=== PATIENT | female | born 1960 | race Caucasian/White ===

== ENCOUNTER 2016-07-25 11:52 | Inpatient (IN) | payer OTHER ==
--- NOTE | ~2016-07-25 | CN ---
Consultation Report [facility] [address] [place]. [address] NAME: FERNANDA KITCHEN : 60 STATUS : ADM IN PAT#: [id number] AGE: 56 ADM/REG DATE : 07/25/16 MR#: [id number] REPORT SERV DATE: 07/27/16 DICTATED BY: ANDIE NGUYEN DATE: 07/26/16 REPORT STATUS : Draft TRANSCRIBED BY: MODL DATE: 07/26/16 CONSULTATION DATE OF CONSULTATION: 07/26/2016 Fernanda Kitchen is a 56-year-old female, whom we are asked to see for evaluation of a Crohn's flare. This patient has been seen by my partner, Dr. Coats in the past. She has a history of Crohn disease that was diagnosed in 1985, the Crohn's was just involved to the small bowel. She had a small bowel resection in 1996. Dr. oCats saw her and did a colonoscopy in February 2005 showing stenosis at the ileocecal valve. The patient was last seen by our group in June of 2014 when she was hospitalized prior to mitral valve replacement surgery. At that time, she had a CT scan showing some esophagitis. An EGD done on 07/14/2014 showed gastritis. The patient has not followed up with button sawyer since that time, because of insurance problems. She does currently have [place] Medicaid. The patient tells me she intermittently has cramping and bloating. She does have chronic diarrhea with about five bowel movements per day. The patient says that her pain increased yesterday that brought her to the emergency room. CT scan showed thickening of the last 10 cm of the terminal ilium prior to its anastomosis of the colon. The lumen was narrowed and it was read as a partial small bowel obstruction. A Gastrografin small bowel followthrough was done today showing thickening of the TI, but no obstruction. The Gastrografin got colon in 45 minutes. The patient continues to have abdominal pain. She denies any hematochezia or melena. She does tell me she had a CVA at [facility] four months ago and is currently on Eliquis because of that. PAST MEDICAL HISTORY: 1. Crohn disease. 2. CVA at [facility]. 3. Hypertension. 4. COPD. 5. TIA in the past. 6. Kidney stones. 7. Depression and bipolar. 8. Hyperlipidemia. PAST SURGICAL HISTORY: 1. Small bowel resection. 2. Mitral valve replacement. OUTPATIENT MEDICATIONS: See list. Of note, she is on Eliquis. ALLERGIES: DARVOCET, BENADRYL, FENTANYL. Consultation Report [place] [id number] [place]. [address] NAME: FERNANDA KITCHEN : 60 STATUS : ADM IN PAT#: [id number] AGE: 56 ADM/REG DATE : 07/25/16 MR#: [id number] REPORT SERV DATE: 07/27/16 DICTATED BY: ANDIE NGUYEN DATE: 07/26/16 REPORT STATUS : Draft TRANSCRIBED BY: JUAN LUIS DATE: 07/26/16 SOCIAL HISTORY: She stopped smoking a couple years ago. The chart says that she does drink, but she denied it. Chart also mentioned that she has used marijuana. FAMILY HISTORY: Noncontributory. REVIEW OF SYSTEMS: All system reviewed and negative except that noted in history of present illness. PHYSICAL EXAMINATION: GENERAL: She is oriented x4, in no acute distress. She is afebrile. VITAL SIGNS: Stable. LUNGS: Clear. CARDIOVASCULAR: Exam revealed normal S1, S2. ABDOMINAL: Exam revealed some mild diffuse lower abdominal tenderness. It was soft with active bowel sounds. LABORATORY DATA: Comprehensive metabolic profile today is normal except for chloride 113, albumin 2.5. Lipase on admission was normal. White blood cell count on admission was 19,200. White blood cell count today is 6000, hemoglobin on admission was 14.6 and today is 11.5, platelet count on admission was 156 and today it is 102. INR is 1.2. IMPRESSION: 1. Partial small bowel obstruction secondary to presumptive terminal ileum Crohn's. 2. Crohn disease. 3. Chronic diarrhea. This patient has not had any GI care in recent years. RECOMMENDATION: 1. Solu-Medrol when she is tolerating p.o., could change that to Entocort. She likely will need other therapy for Crohn's if we do confirm on colonoscopy that this is Crohn's. 2. It will be a good idea to do a colonoscopy, but we would question the hospitalist whether Eliquis can be held. 3. Will need outpatient GI doctor who participates in [place] Medicaid. I told her I would get the director case involved. Thanks for allowing us to assist in her care. ADRIANA/JUAN LUIS Andie Nguyen M.D. Consultation Report [facility] [address] [place] [address] NAME: FERNANDA KITCHEN : 60 STATUS : ADM IN PAT#: [id number] AGE: 56 ADM/REG DATE : 07/25/16 MR#: [id number] REPORT SERV DATE: 07/27/16 DICTATED BY: ANDIE NGUYEN DATE: 07/26/16 REPORT STATUS : Draft TRANSCRIBED BY: JUAN LUIS DATE: 07/26/16 / [id number] CC: Eliud Chang MD
--- NOTE | ~2016-07-25 | DS ---
Discharge Summary [facility] [address] [place]. [address] NAME: VAMSI EDWARDS : 60 STATUS : DIS IN PAT#: [id number] AGE: 56 ADM/REG DATE : 07/25/16 MR#: [id number] REPORT SERV DATE: 08/04/16 DICTATED BY: DATE: REPORT STATUS : Draft TRANSCRIBED BY: MODL DATE: 07/31/16 ADMISSION DATE: 07/25/2016 DISCHARGE DATE: 07/31/2016 The patient was admitted to the [facility]. ATTENDING DOCTOR: Eliud Chang MD CONSULTANTS: Major Andrea MD of Gastroenterology. DISCHARGE DIAGNOSES: 1. Partial small bowel obstruction-resolved. Due to significant inflammation of the terminal ileum and Crohn's exacerbation. 2. Longstanding history of Crohn's disease, with poor recent followup. Discharged on Pentasa and steroid taper, for consideration of outpatient initiation of alternative therapeutic agents. QuantiFERON-TB test pending at the time of discharge. 3. 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 4. History of a tissue mitral valve. 5. Hypertension. 6. Hypokalemia. 7. Hyperlipidemia. 8. Chronic obstructive pulmonary disease with past history of tobacco abuse. 9. Steroid-induced hyperglycemia. IMAGING AND DIAGNOSTICS: 1. CT abdomen and pelvis 07/25/2016, for abdominal pain, nausea, vomiting, and diarrhea shows fluid-filled distended loops of small intestine consistent with partial obstruction. Distal small intestine proximal to the anastomosis of the colon exhibits diffusely thickened wall narrowing of the lumen. Small amount of free fluid in the pelvis. Multiple prominent lymph nodes in the mesentery. Multiple small calcifications in the renal pyramids. 2. Small bowel follow through 07/26/2016. No evidence of small-bowel obstruction. Mucosal fold thickening of the terminal ileum consistent with terminal ileitis. 3. KUB, 07/27/2016, for partial small bowel obstruction shows progression of oral contrast through the GI tract with contrast remaining in portions of colon and very small amount within small bowel. No distended small bowel loops to suggest further obstruction. 4. Colonoscopy 07/29/2016, shows stricture at the ileocecal valve, which was biopsied. PERTINENT LABS: Potassium values through admission 3.1 to 4.3, creatinine through admission 0.9 to 1.3. Liver enzymes were normal. Lipase was normal. Initial lactate 2.5. Hepatitis serologies negative. Initial white count 19.2, 13.2 at discharge on steroids; hemoglobin 13.3; platelet count between 102 and 156. INR normal. QuantiFERON-TB test pending at time of discharge. Urinalysis showed cloudy urine with moderate leukocyte esterase, 14 red blood cells, 8 white blood cells, 19 squamous epithelial cells. Stool was negative for O and P, and fecal leukocytes. Negative for C. difficile toxin and urine culture showed mixed gram- Discharge Summary [facility] [address] [place]. [address] NAME: VAMSI EDWARDS : 60 STATUS : DIS IN PAT#: [id number] AGE: 56 ADM/REG DATE : 07/25/16 MR#: [id number] REPORT SERV DATE: 08/04/16 DICTATED BY: DATE: REPORT STATUS : Draft TRANSCRIBED BY: MODL DATE: 07/31/16 positive cocci and diphtheroids suggestive of contamination. BRIEF HISTORY: For full details, please see the previously dictated history of present illness by Dr. Eliud Chang. This is a 56-year-old white female with longstanding history of Crohn's disease, diagnosed in the 1980s, who has had inconsistent and poor followup over the years, due to limitations in her insurance network and finances. She has not been on anything for her Crohn's disease recently. She presented with complaints of abdominal pain, nausea, vomiting, loose stools. Initial ER workup revealed elevated white count of 19.2. Subsequent CT of the abdomen demonstrated partial small bowel obstruction with significant terminal ileitis. She was admitted to the Hospitalist Service for management. HOSPITAL COURSE: The patient was admitted to [address] [place] [address] for management of partial small bowel obstruction. This included making her n.p.o., utilizing NG suction, and starting her on antibiotics of IV Levaquin and Flagyl. GI was also consulted and followed the patient through to resolution of her partial small bowel obstruction two days following admission. The partial small bowel obstruction was felt related to terminal ileitis. She underwent a colonoscopy on 07/29/2016, demonstrating severe stenosis at the ileocecal valve with significant terminal ileitis. The patient was placed on steroids during the admission and transition to oral prednisone for a prolonged outpatient taper. Hepatitis serologies and QuantiFERON gold were obtained this admission to evaluate for candidacy for Humira versus Remicade versus Imuran for ongoing maintenance. The patient has [place] Medicaid and is out of network for many of the [facility] providers. She is being referred to a fountain brush assembler who takes [place] Medicaid, and will be arranged for a one time followup with [facility] here, post hospitalization, to assess how she is doing and follow up on results of the QuantiFERON gold testing. Prior to discharge, the patient was able to tolerate a regular diet with minimal abdominal pain, occasional sense of epigastric fullness or bloating, but normal bowel movements and no recurrence of nausea or vomiting. Chronic medical issues were managed with home medications this admission with the exception of hypertension, which occasionally required p.r.n. hydralazine and hypokalemia, which necessitated initiation of scheduled potassium replacement. Her Eliquis was held around the time of colonoscopy, but restarted afterward and she was bridged with a heparin drip during that period due to history of thromboembolic CVA. DISCHARGE DISPOSITION: The patient is discharged to home in the care of her supportive family with no specific activity or dietary restrictions. She is encouraged to consume smaller more frequent meals in order to decrease some of her abdominal bloating, which tends to occur postprandially. As above, she is being arranged for a one time followup with [facility] and being referred to Dr. Suellen Moeller in [place] for management of her Crohn's disease on a long-term basis, for consideration of initiation of disease modifying therapies. DISCHARGE MEDICATIONS: Include: Discharge Summary [place] [id number] [facility] [place]. [address] NAME: VAMSI EDWARDS : 60 STATUS : DIS IN PAT#: [id number] AGE: 56 ADM/REG DATE : 07/25/16 MR#: [id number] REPORT SERV DATE: 08/04/16 DICTATED BY: DATE: REPORT STATUS : Draft TRANSCRIBED BY: JUNA LUIS DATE: 07/31/16 1. Eliquis 5 mg p.o. twice a day. 2. Coreg 25 mg p.o. q.a.m. and 12.5 mg p.o. q.h.s. 3. B12 1000 mcg p.o. daily. 4. Pravastatin 20 mg p.o. daily. 5. Pentasa 1000 mg p.o. three times a day. 6. Potassium 20 mEq p.o. daily. 7. Levaquin 750 mg p.o. daily for 8 days. 8. Flagyl 500 mg p.o. q.8 hours for 8 days. 9. Prednisone 40 mg p.o. daily for one week, then 35 mg p.o. daily for one week, then 30 mg p.o. daily for one week, then 25 mg p.o. daily for one week, then 20 mg p.o. daily for one week, then 15 mg p.o. daily for one week, then 10 mg p.o. daily for one week, then 5 mg p.o. daily for one week, then discontinue. Forty minutes was spent in coordination of discharge in review of the plan with the patient, specialists, and case management. DICTATED BY: Darling Montgomery/JUAN LUIS Yordy Rubio M.D. / [id number] CC: Darlnig Montgomery M.D. [facility] SUELLEN Moeller MD
--- NOTE | ~2016-07-25 | EGD ---
EGD REPORT [facility] [address] [address] NAME: FERNANDA KITCHEN : 60 STATUS : ADM IN PAT#: [id number] AGE: 56 ADM/REG DATE : 07/25/16 MR#: [id number] REPORT SERV DATE: 07/29/16 DICTATED BY: DATE: REPORT STATUS : Draft TRANSCRIBED BY: [facility] DATE: 07/29/16 [facility] Patient Name: Fernanda Kitchen Date of : 1960 Attending MD: MAJOR RIVERA MD Procedure Date No Time: 07/29/2016 Procedure: Colonoscopy Indications: Personal history of Crohn's disease, Abnormal CT of the GI tract Medicines: Monitored Anesthesia Care Complications: No immediate complications. Estimated blood loss: Minimal. Procedure: Pre-Anesthesia Assessment: - ASA Grade Assessment: III - A patient with severe systemic disease. After I obtained informed consent, the scope was passed under direct vision. Throughout the procedure, the patient's blood pressure, pulse, and oxygen saturations were monitored continuously. The CF [id number] was introduced through the anus and advanced to the cecum, identified by appendiceal orifice and ileocecal valve. The colonoscopy was performed without difficulty. The patient tolerated the procedure well. The quality of the bowel preparation was excellent. Findings: The perianal and digital rectal examinations were normal. Pertinent negatives include no palpable rectal lesions. A benign-appearing, intrinsic moderate stenosis measuring 4 mm (inner diameter) was found at the ileocecal valve and was non-traversed. Biopsies were taken with a cold forceps for histology. Estimated blood loss was minimal. The exam was otherwise without abnormality on direct and retroflexion views. Impression: - Stricture at the ileocecal valve. Biopsied. - The examination was otherwise normal on direct and retroflexion views. Recommendation: - Return patient to [facility] for ongoing care. - Await pathology results. - Check hepatitis panel and Quantiferon Gold for TB prior to starting anti-TNF agent vs azathioprine for maintenance EGD REPORT [facility] [address] [facility] [place]. [address] NAME: FERNANDA KITCHEN : 60 STATUS : ADM IN [facility]#: [id number] AGE: 56 ADM/REG DATE : 07/25/16 MR#: [id number] REPORT SERV DATE: 07/29/16 DICTATED BY: DATE: REPORT STATUS : Draft TRANSCRIBED BY: [employer] DATE: 07/29/16 Procedure Code(s): --- Professional --- 64755, Colonoscopy, flexible, proximal to splenic flexure; with biopsy, single or multiple Diagnosis Code(s): --- Professional --- K56.69, Other intestinal obstruction Z87.19, Personal history of other diseases of the digestive system R93.3, Abnormal findings on diagnostic imaging of other parts of digestive tract CPT copyright 2013 [employer]. All rights reserved. The codes documented in this report are preliminary and upon belt sander stone review may be revised to meet current compliance requirements. Major Rivera MD MAJOR RIVERA MD 07/29/2016 7:55 AM This report has been signed electronically. Number of Addenda: 0 Note Initiated On: 07/29/2016 7:00 AM Scope Withdrawal Time 0 hours 12 minutes 52 seconds [address] [facility] [place] [address]
--- NOTE | ~2016-07-25 | HP ---
History And Physical [place] [id number] [facility] [place]. [address] NAME: FERNANDA KITCHEN : 60 STATUS : ADM IN [facility]#: [id number] AGE: 56 ADM/REG DATE : 07/25/16 MR#: [id number] REPORT SERV DATE: 07/25/16 DICTATED BY: SELINA ACOSTA DATE: 07/25/16 REPORT STATUS : Draft TRANSCRIBED BY: MODL DATE: 07/25/16 DATE OF ADMISSION: 07/25/2016 CHIEF COMPLAINT: Abdominal pain. Ms. Fernanda Kitchen is a 56-year-old female with a history of hypertension, remote history of Crohn's disease, and a history of aortic valve replacement who presents today with a complaint of abdominal pain. The patient states that she was feeling well all of yesterday, however, this morning, she was awoken by severe abdominal pain which she reports as crampy 9/10 in severity and generalized. The patient states that her symptoms was associated with several episodes of emesis. She describes her vomitus as nonbilious and nonbloody. She states that she tried home remedies to control her pain; however, symptoms progressively worsened, prompting her to present to the emergency room. Upon presentation to the emergency room, preliminary workup noted an elevated WBC at 19.2. She subsequently had a CT of the abdomen without contrast with findings consistent with a partial small-bowel obstruction. Hospital Medicine was consulted to admit the patient for further management. At the time of my evaluation, the patient corroborated the above story. She denied any recent change in diet or any recent sick contacts. She states that she has never had this happen before. She denies any lightheadedness, dizziness, no hematemesis, and no diarrhea. No chest pain or palpitations. REVIEW OF SYSTEMS: A 14-point review of system was performed. All systems were negative except as noted in the HPI. PAST MEDICAL HISTORY: 1. Significant for Crohn's disease. 2. COPD. 3. Hypertension. PAST SURGICAL HISTORY: 1. Significant for aortic valve repair. 2. Small bowel resection. FAMILY HISTORY: 1. Significant for hypertension. 2. Diabetes type 2. 3. Lymphoma. 4. Basal-cell cancer. SOCIAL HISTORY: The patient is currently and lives at home with her boyfriend has 6 kids, 4 boys and 2 girls. She reports a 30 pack year smoking history stating that she quit 2 years ago. Reports history of alcohol use. She also reports a history of marijuana use stating that her last use was about a week ago. History And Physical [place] [address] [place]. [address] NAME: FERNANDA KITCHEN : 60 STATUS : ADM IN PAT#: [id number] AGE: 56 ADM/REG DATE : 07/25/16 MR#: [id number] REPORT SERV DATE: 07/25/16 DICTATED BY: SELINA ACOSTA DATE: 07/25/16 REPORT STATUS : Draft TRANSCRIBED BY: JUAN LUIS DATE: 07/25/16 ALLERGIES: THE PATIENT REPORTS ALLERGIES TO BENADRYL. PHYSICAL EXAMINATION: VITAL SIGNS: Vitals on presentation, blood pressure 151/80 with a pulse of 70, respiration 18, and O2 saturation 99 on room air. GENERAL: The patient lying in bed, appears stated age, in no acute distress. Speaking in full sentences. HEENT: Normocephalic and atraumatic. Extraocular motors intact. Moist oral mucosa. NECK: Trachea midline and symmetric. No JVD. No thyromegaly. No lymphadenopathy. CHEST: Nontender to palpation. Positive well-healed scar noted. CARDIOVASCULAR: Regular rate and rhythm. S1, S2. I did not appreciate any murmurs, rubs, or gallops. LUNGS: Clear to auscultation bilaterally. No added breath sounds. ABDOMEN: Mild tenderness noted in the left lower quadrant; however, no distention, no guarding, no rebound tenderness. EXTREMITIES: No cyanosis, no clubbing, no edema. NEUROLOGIC: Alert and oriented x3. No focal deficits appreciated. LABORATORY DATA: WBC 19.2, hemoglobin 14.6, hematocrit 45.6, and platelets 156. Sodium 139, potassium 4.5, chloride 107, bicarb 24, BUN 15, creatinine 0.99, glucose 166. IMAGING: CT abdomen and pelvis without contrast. IMPRESSION: Fluid filled distended loops of small intestine consistent with partial obstruction, distal 10 to 12 cm of intestine just proximal to the anastomosis of the colon an exhibits diffusely thickened wall narrowing the lumen. The patient has a history of Crohn's disease. Small amount of free fluid in the pelvis. Multiple prominent lymph nodes in mesentery. Multiple small calcifications in the renal pyramids through each kidney with no obstruction. ASSESSMENT AND PLAN: 1. Partial small-bowel obstruction. We will place the patient n.p.o. for now. I will start IV Levaquin and Flagyl. Pain control and monitor. 2. History of Crohn's disease. Patient currently not on any medications, has been asymptomatic for several years. We will monitor. 3. History of cerebrovascular accident. 4. Hypertension. We will continue home medications. 5. History of aortic valve repair currently stable. 6. Code status. The patient will remain full code. 7. DVT prophylaxis. Patient already on therapeutic anticoagulation. JE/JUAN LUIS History And Physical [address] [address] NAME: FERNANDA KITCHEN : 60 STATUS : ADM IN [facility]#: [id number] AGE: 56 ADM/REG DATE : 07/25/16 MR#: [id number] REPORT SERV DATE: 07/25/16 DICTATED BY: SELINA ACOSTA DATE: 07/25/16 REPORT STATUS : Draft TRANSCRIBED BY: JUAN LUIS DATE: 07/25/16 Selina Acosta MD / [id number] CC: Selina Acosta MD
[2016-07-25 11:39] LABS: BASOPHILS 0.1 %; BASOPHILS ABSOLUTE 0.02 10/3/uL (0.0-0.16); EOSINOPHILS 0.1 %; EOSINOPHILS ABSOLUTE 0.02 10/3/uL (0.0-0.53); IMMATURE GRANULOCYTES 0.3 %; IMMATURE GRANULOCYTES ABSOLUTE 0.06 10/3/uL (0.0-0.11); LYMPHOCYTES 4.9 %; LYMPHOCYTES ABSOLUTE 0.94 10/3/uL (0.67-4.30); MEAN CORPUSCULAR HEMOGLOB 28.2 pg (26.0-34.0); MEAN PLATELET VOLUME 10.9 fL (9.2-13.0); MONOCYTES 6.1 %; MONOCYTES ABSOLUTE 1.17 10/3/uL (0.21-1.20); NEUTROPHILS 88.5 %; NEUTROPHILS ABSOLUTE 16.99 10/3/uL (2.02-8.40)
[2016-07-25 11:40] LABS: ER CBC TAT 0 Hrs 11 Mins; HEMATOCRIT 45.6 % (36.0-48.0); HEMOGLOBIN 14.6 g/dL (12.0-16.0); MANUAL DIFF NO %; PLATELET COUNT 156 10/3/uL (150-400); RED CELL COUNT 5.18 10/6/uL (4.0-5.6); WHITE BLOOD CELLS 19.2 10/3/uL (4.5-10.5)
[2016-07-25 11:50] LABS: ASCORBIC ACID (UR NOT ORDER) NEG (NEG); BILIRUBIN, URINE NEGATIVE (NEG); ER URINALYSIS TAT 0 Hrs 21 Mins; KETONE, URINE NEGATIVE (NEG); LEUKOCYTE ESTERASE(NOT OR MOD (NEG); NITRITE (URINE) NEG (NEG); WBC (NOT ORDERED) (RFLEX) 8 (0-5)
[~2016-07-25 11:52] MED LIST: ACET500CAP PO; ADVIL PO; ASAB PO; CIPRO (10%) PO; CORDARONE PO; COREG6 PO; NORCO1 TA1 PO; PRIN10 PO; PRIN5 PO; PROAIR HFA INH; PROVENTSOL INH; VITC500 PO
[2016-07-25 11:55] LABS: A/G RATIO 1.1 (0.7-1.9); ALBUMIN 3.3 G/DL (3.5-5.0); ALKALINE PHOSPHATASE 77 U/L (45-117); CHLORIDE, SERUM 107 MMOL/L (96-112); CREATININE 0.99 MG/DL (0.55-1.02); GFR AFRICAN AMERICAN 74 ML/MIN (>=60); GFR NON AFRICAN AMERICAN 64 ML/MIN (>=60); GLOBULIN 3.1 G/DL (2.5-4.1); GLUCOSE, SERUM 116 MG/DL (60-99); SGPT(ALT) 24 U/L (5-65); SODIUM, SERUM 139 MMOL/L (135-148); TOTAL BILIRUBIN 0.4 MG/DL (0-1.2); TOTAL PROTEIN 6.4 G/DL (6.0-8.5)
[2016-07-25 11:59] LABS: BUN (BLOOD UREA NITROGEN) 15 MG/DL (6-23); CO2 (CARBON DIOXIDE) 24 MMOL/L (24-34); POTASSIUM, SERUM 4.5 MMOL/L (3.5-5.3); SGOT(AST) 31 U/L (5-40)
[2016-07-25 12:57] LABS: LACTATE 2.5 MMOL/L (0.3-2.4)
[2016-07-25 13:01] LABS: PROCALCITONIN <0.05 ng/mL (<0.5)
[2016-07-25] MEDS ORDERED: ELIQUIS 5 MG TAB5 MG PO (13:20)
[2016-07-25] MEDS ORDERED: COREG25 PO (13:20)
[2016-07-25] MEDS ORDERED: COREG12 PO (13:21)
[2016-07-25] MEDS ORDERED: CYANO1000T PO (13:21)
[2016-07-25] MEDS ORDERED: PRAVAC PO (13:21)
[2016-07-26 06:30] LABS: MEAN CORPUS HGB CONC 31.7 g/dL (32.0-36.0); MEAN CORPUSCULAR HEMOGLOB 28.2 pg (26.0-34.0); MEAN PLATELET VOLUME 10.3 fL (9.2-13.0); RBC DISTRIBUTION WIDTH 13.3 % (12.0-16.0)
[2016-07-26 06:31] LABS: BUN (BLOOD UREA NITROGEN) 13 MG/DL (6-23); CHLORIDE, SERUM 113 MMOL/L (96-112); CO2 (CARBON DIOXIDE) 24 MMOL/L (24-34); CREATININE 0.87 MG/DL (0.55-1.02); GFR AFRICAN AMERICAN 86 ML/MIN (>=60); GFR NON AFRICAN AMERICAN 74 ML/MIN (>=60); GLUCOSE, SERUM 93 MG/DL (60-99); POTASSIUM, SERUM 4.1 MMOL/L (3.5-5.3); SGOT(AST) 17 U/L (5-40); SGPT(ALT) 18 U/L (5-65); SODIUM, SERUM 143 MMOL/L (135-148); TOTAL BILIRUBIN 0.7 MG/DL (0-1.2); TOTAL PROTEIN 5.3 G/DL (6.0-8.5)
[2016-07-26 06:32] LABS: A/G RATIO 0.9 (0.7-1.9); ALBUMIN 2.5 G/DL (3.5-5.0); ALKALINE PHOSPHATASE 56 U/L (45-117); GLOBULIN 2.8 G/DL (2.5-4.1)
[2016-07-26 06:33] LABS: HEMATOCRIT 36.3 % (36.0-48.0); HEMOGLOBIN 11.5 g/dL (12.0-16.0); PLATELET COUNT 102 10/3/uL (150-400); RED CELL COUNT 4.08 10/6/uL (4.0-5.6)
[2016-07-26 06:34] LABS: MANUAL DIFF YES %
[2016-07-26 07:01] LABS: BAND NEUTROPHILS 2 %; LYMPHOCYTES 20 %; MONOCYTES 7 %; MONOCYTES ABSOLUTE (CALC) 0.42 10/3/uL (0.21-1.20); NEUTROPHILS ABSOLUTE (CALC) 4.38 10/3/uL (2.02-8.40); PLATELET ESTIMATE SLT DEC (ADEQUATE); SEGMENTED NEUTROPHIL (0) 71 %; TOTAL NUCLEATED CELLS 100
[2016-07-26 07:02] LABS: RBC MORPHOLOGY NORM (NORMAL)
[2016-07-27 09:05] LABS: BASOPHILS 0.2 %; BASOPHILS ABSOLUTE 0.01 10/3/uL (0.0-0.16); EOSINOPHILS 0 %; HEMOGLOBIN 13.6 g/dL (12.0-16.0); LYMPHOCYTES 8.8 %; LYMPHOCYTES ABSOLUTE 0.58 10/3/uL (0.67-4.30); MEAN CORPUS HGB CONC 31.5 g/dL (32.0-36.0); MEAN CORPUSCULAR HEMOGLOB 28.5 pg (26.0-34.0); MEAN CORPUSCULAR VOLUME 90.6 fL (80-100); MEAN PLATELET VOLUME 10.8 fL (9.2-13.0); MONOCYTES 1.1 %; MONOCYTES ABSOLUTE 0.07 10/3/uL (0.21-1.20); NEUTROPHILS 89.9 %; NEUTROPHILS ABSOLUTE 5.96 10/3/uL (2.02-8.40); RBC DISTRIBUTION WIDTH 12.9 % (12.0-16.0); RED CELL COUNT 4.77 10/6/uL (4.0-5.6); WHITE BLOOD CELLS 6.6 10/3/uL (4.5-10.5)
[2016-07-27 09:06] LABS: HEMATOCRIT 43.2 % (36.0-48.0); MANUAL DIFF NO %; PLATELET COUNT 137 10/3/uL (150-400)
[2016-07-27 09:20] LABS: BUN (BLOOD UREA NITROGEN) 13 MG/DL (6-23); CALCIUM, SERUM 8.6 MG/DL (8.5-10.4); CHLORIDE, SERUM 107 MMOL/L (96-112); CO2 (CARBON DIOXIDE) 26 MMOL/L (24-34); CREATININE 0.91 MG/DL (0.55-1.02); GFR AFRICAN AMERICAN 82 ML/MIN (>=60); GFR NON AFRICAN AMERICAN 71 ML/MIN (>=60); POTASSIUM, SERUM 4.1 MMOL/L (3.5-5.3); SGOT(AST) 20 U/L (5-40); SGPT(ALT) 19 U/L (5-65); SODIUM, SERUM 140 MMOL/L (135-148); TOTAL BILIRUBIN 0.5 MG/DL (0-1.2)
[2016-07-27 09:24] LABS: A/G RATIO 0.9 (0.7-1.9); ALBUMIN 3.1 G/DL (3.5-5.0); ALKALINE PHOSPHATASE 68 U/L (45-117); GLOBULIN 3.5 G/DL (2.5-4.1); GLUCOSE, SERUM 185 MG/DL (60-99); TOTAL PROTEIN 6.6 G/DL (6.0-8.5)
[2016-07-27 11:22] LABS: PARTIAL THROMBO TIME 28.7 SEC (22.5-37.2)
[2016-07-27 13:15] LABS: INTERNATIONAL NORMAL RATI 1.1 UNITS (-); PROTIME (NOT ORD) 14.4 SEC (12.0-14.5)
[2016-07-28 06:41] LABS: BASOPHILS 0 %; EOSINOPHILS 0 %; HEMOGLOBIN 12.1 g/dL (12.0-16.0); IMMATURE GRANULOCYTES 0.5 %; IMMATURE GRANULOCYTES ABSOLUTE 0.08 10/3/uL (0.0-0.11); LYMPHOCYTES 7.3 %; LYMPHOCYTES ABSOLUTE 1.17 10/3/uL (0.67-4.30); MEAN CORPUS HGB CONC 32.3 g/dL (32.0-36.0); MEAN CORPUSCULAR HEMOGLOB 28.7 pg (26.0-34.0); MEAN CORPUSCULAR VOLUME 88.9 fL (80-100); MEAN PLATELET VOLUME 10.6 fL (9.2-13.0); MONOCYTES 4.2 %; MONOCYTES ABSOLUTE 0.68 10/3/uL (0.21-1.20); PLATELET COUNT 147 10/3/uL (150-400); RBC DISTRIBUTION WIDTH 13.2 % (12.0-16.0); RED CELL COUNT 4.22 10/6/uL (4.0-5.6)
[2016-07-28 06:42] LABS: INTERNATIONAL NORMAL RATI 1.2 UNITS (-); PROTIME (NOT ORD) 14.6 SEC (12.0-14.5)
[2016-07-28 06:43] LABS: HEMATOCRIT 37.5 % (36.0-48.0); MANUAL DIFF NO %; WHITE BLOOD CELLS 16.1 10/3/uL (4.5-10.5)
[2016-07-28 06:53] LABS: BUN (BLOOD UREA NITROGEN) 11 MG/DL (6-23); CHLORIDE, SERUM 108 MMOL/L (96-112); CO2 (CARBON DIOXIDE) 24 MMOL/L (24-34); CREATININE 1.03 MG/DL (0.55-1.02); GFR AFRICAN AMERICAN 70 ML/MIN (>=60); GFR NON AFRICAN AMERICAN 61 ML/MIN (>=60); POTASSIUM, SERUM 3.8 MMOL/L (3.5-5.3); SODIUM, SERUM 141 MMOL/L (135-148)
[2016-07-28 06:56] LABS: GLUCOSE, SERUM 135 MG/DL (60-99)
[2016-07-28 08:52] LABS: PARTIAL THROMBO TIME 106.8 SEC (22.5-37.2)
[2016-07-29 04:26] LABS: BASOPHILS 0 %; EOSINOPHILS 0 %; HEMATOCRIT 35.8 % (36.0-48.0); HEMOGLOBIN 11.8 g/dL (12.0-16.0); IMMATURE GRANULOCYTES 0.4 %; IMMATURE GRANULOCYTES ABSOLUTE 0.04 10/3/uL (0.0-0.11); LYMPHOCYTES 7.6 %; LYMPHOCYTES ABSOLUTE 0.83 10/3/uL (0.67-4.30); MEAN CORPUSCULAR HEMOGLOB 28.8 pg (26.0-34.0); MEAN CORPUSCULAR VOLUME 87.3 fL (80-100); MEAN PLATELET VOLUME 10.7 fL (9.2-13.0); MONOCYTES ABSOLUTE 0.44 10/3/uL (0.21-1.20); NEUTROPHILS ABSOLUTE 9.61 10/3/uL (2.02-8.40); PLATELET COUNT 129 10/3/uL (150-400); RBC DISTRIBUTION WIDTH 13.1 % (12.0-16.0); WHITE BLOOD CELLS 10.9 10/3/uL (4.5-10.5)
[2016-07-29 04:28] LABS: MANUAL DIFF NO %
[2016-07-29 04:29] LABS: INTERNATIONAL NORMAL RATI 1.1 UNITS (-); PROTIME (NOT ORD) 14.2 SEC (12.0-14.5)
[2016-07-29 04:42] LABS: BUN (BLOOD UREA NITROGEN) 11 MG/DL (6-23); CALCIUM, SERUM 8.9 MG/DL (8.5-10.4); CHLORIDE, SERUM 104 MMOL/L (96-112); CO2 (CARBON DIOXIDE) 27 MMOL/L (24-34); CREATININE 0.84 MG/DL (0.55-1.02); GFR AFRICAN AMERICAN 90 ML/MIN (>=60); GFR NON AFRICAN AMERICAN 78 ML/MIN (>=60); GLUCOSE, SERUM 146 MG/DL (60-99); POTASSIUM, SERUM 3.1 MMOL/L (3.5-5.3); SODIUM, SERUM 139 MMOL/L (135-148)
[2016-07-29 12:26] LABS: HEPATITIS B SURFACE ANTIGEN NON-REACTIVE (NON-REACT)
[2016-07-29 12:54] LABS: HEPATITIS B CORE AB IGM NON-REACTIVE (NON-REAC); HEPATITIS C ANTIBODY NON-REACTIVE (NON-REACT)
[2016-07-29 12:56] LABS: HEP A ANTIBODY IGM NON-REACTIVE (NON-REACT)
[2016-07-30 04:54] LABS: BASOPHILS 0.1 %; BASOPHILS ABSOLUTE 0.01 10/3/uL (0.0-0.16); EOSINOPHILS 0 %; HEMATOCRIT 38.7 % (36.0-48.0); HEMOGLOBIN 12.4 g/dL (12.0-16.0); IMMATURE GRANULOCYTES 0.9 %; LYMPHOCYTES 6.1 %; LYMPHOCYTES ABSOLUTE 0.65 10/3/uL (0.67-4.30); MANUAL DIFF NO %; MEAN CORPUSCULAR HEMOGLOB 28.2 pg (26.0-34.0); MEAN CORPUSCULAR VOLUME 88.2 fL (80-100); MONOCYTES 8.2 %; MONOCYTES ABSOLUTE 0.87 10/3/uL (0.21-1.20); NEUTROPHILS 84.7 %; NEUTROPHILS ABSOLUTE 8.97 10/3/uL (2.02-8.40); PLATELET COUNT 121 10/3/uL (150-400); RBC DISTRIBUTION WIDTH 13.2 % (12.0-16.0); RED CELL COUNT 4.39 10/6/uL (4.0-5.6); WHITE BLOOD CELLS 10.6 10/3/uL (4.5-10.5)
[2016-07-30 05:06] LABS: CALCIUM, SERUM 9.1 MG/DL (8.5-10.4); CHLORIDE, SERUM 102 MMOL/L (96-112); CO2 (CARBON DIOXIDE) 31 MMOL/L (24-34); CREATININE 1.06 MG/DL (0.55-1.02); GFR AFRICAN AMERICAN 68 ML/MIN (>=60); GFR NON AFRICAN AMERICAN 59 ML/MIN (>=60); GLUCOSE, SERUM 143 MG/DL (60-99); POTASSIUM, SERUM 3.8 MMOL/L (3.5-5.3); SODIUM, SERUM 138 MMOL/L (135-148)
[2016-07-30 05:07] LABS: BUN (BLOOD UREA NITROGEN) 15 MG/DL (6-23)
[2016-07-31 04:32] LABS: BASOPHILS 0.1 %; BASOPHILS ABSOLUTE 0.01 10/3/uL (0.0-0.16); EOSINOPHILS 0.2 %; EOSINOPHILS ABSOLUTE 0.03 10/3/uL (0.0-0.53); HEMATOCRIT 42.2 % (36.0-48.0); HEMOGLOBIN 13.3 g/dL (12.0-16.0); IMMATURE GRANULOCYTES 1.7 %; IMMATURE GRANULOCYTES ABSOLUTE 0.23 10/3/uL (0.0-0.11); LYMPHOCYTES 17.5 %; MEAN CORPUS HGB CONC 31.5 g/dL (32.0-36.0); MEAN CORPUSCULAR VOLUME 88.8 fL (80-100); MEAN PLATELET VOLUME 10.6 fL (9.2-13.0); MONOCYTES 10.2 %; MONOCYTES ABSOLUTE 1.34 10/3/uL (0.21-1.20); NEUTROPHILS 70.3 %; NEUTROPHILS ABSOLUTE 9.25 10/3/uL (2.02-8.40); PLATELET COUNT 114 10/3/uL (150-400); RED CELL COUNT 4.75 10/6/uL (4.0-5.6); WHITE BLOOD CELLS 13.2 10/3/uL (4.5-10.5)
[2016-07-31 04:33] LABS: MANUAL DIFF NO %
[2016-07-31 04:51] LABS: CALCIUM, SERUM 8.9 MG/DL (8.5-10.4); CHLORIDE, SERUM 100 MMOL/L (96-112); CO2 (CARBON DIOXIDE) 35 MMOL/L (24-34); CREATININE 1.36 MG/DL (0.55-1.02); GFR AFRICAN AMERICAN 50 ML/MIN (>=60); GFR NON AFRICAN AMERICAN 43 ML/MIN (>=60); POTASSIUM, SERUM 3.2 MMOL/L (3.5-5.3); SODIUM, SERUM 139 MMOL/L (135-148)
[2016-07-31 04:54] LABS: BUN (BLOOD UREA NITROGEN) 20 MG/DL (6-23); GLUCOSE, SERUM 88 MG/DL (60-99)
[2016-07-31] MEDS ORDERED: LEVAQUIN750 MG PO (13:43)
[2016-07-31] MEDS ORDERED: FLAG500TAB PO (13:43)
[2016-07-31] MEDS ORDERED: STERAPDS12 (13:43)
[2016-07-31] MEDS ORDERED: KDUR20 PO (13:44)
[2016-07-31] MEDS ORDERED: PENTASA500 MG PO (13:44)
[2016-08-04 15:27] LABS: QUANTIFERON MITOGEN (MG NIL) 3.58 IU/mL (()); QUANTIFERON NIL 0.01 IU/mL (()); QUANTIFERON TB GOLD Negative (NEG)
== END 2016-07-31 14:38 | disposition home or self-care (01) | DRG 386 ==
LOC: ER 11:52 → 4SO 15:01
PROVIDERS: Emergency Medicine; Hospitalist; Internal Medicine Gastroenterology; Nurse Practitioner Family
PROC: 0DBC8ZX Excision of Ileocecal Valve, Via Natural or Artificial Opening Endoscopic, Diagnostic (ICD-10-PCS; principal; 2016-07-29 07:30)
DX: K50.012 Crohn's disease of small intestine with intestinal obstruction (principal); I10 Essential (primary) hypertension; J44.9 Chronic obstructive pulmonary disease, unspecified; N20.0 Calculus of kidney; E78.5 Hyperlipidemia, unspecified; F31.9 Bipolar disorder, unspecified; Z86.73 Personal history of transient ischemic attack (TIA), and cerebral infarction without residual deficits; Z87.19 Personal history of other diseases of the digestive system; Z95.2 Presence of prosthetic heart valve; Z87.442 Personal history of urinary calculi; Z88.8 Allergy status to other drugs, medicaments and biological substances; Z87.891 Personal history of nicotine dependence; Z90.49 Acquired absence of other specified parts of digestive tract; F12.929 Cannabis use, unspecified with intoxication, unspecified; Z79.01 Long term (current) use of anticoagulants; Z88.5 Allergy status to narcotic agent; R19.7 Diarrhea, unspecified; E87.6 Hypokalemia; R73.9 Hyperglycemia, unspecified; T38.0X5A Adverse effect of glucocorticoids and synthetic analogues, initial encounter; I25.10 Atherosclerotic heart disease of native coronary artery without angina pectoris; Z95.1 Presence of aortocoronary bypass graft; Z91.19 Patient's noncompliance with other medical treatment and regimen
CPT/HCPCS: 74000; 74176; 74250; 80048; 80053; 80074; 81001; 81401; 83605; 83690; 83735; 84132; 84145; 85025; 85610; 85730; 86480; 87045; 87046; 87046-59; 87086; 87328; 87329; 87493; 87493-59; 87899; 87899-59; 88305; 88341; 88342; 89055; 93005; 96374; 96375; 99285; A9270-GY; J1170; J1956; J2405; J2920